=== PATIENT | female | born 1955 | race Caucasian/White ===

== ENCOUNTER 2019-08-27 12:46 | Emergency (ER) | payer BC, OTHER ==
[~2019-08-27] VITALS: Ht 170.2 cm; Wt 70.3 kg
--- NOTE | 2019-08-27 12:50 | NUR ---
CAME IN FOR EPIGASTRIC AREA PAIN AND CHEST TIGHTNESS RADIATING TO BACK. 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
--- NOTE | 2019-08-27 12:52 | NUR ---
ASSEMBLY LINE INSPECTOR DEGRASSE AT BEDSIDE
[2019-08-27] MEDS ORDERED: ONDANSETRON HCL/PF 4 MG/2 ML VIAL IVP ONE (13:00)
[2019-08-27] MEDS ORDERED: MORPHINE SULFATE INJ 2 MG/ML DISP.SYRIN IV ONE ×2 (13:00→14:00)
[2019-08-27] MEDS ORDERED: IV NS 0.9% 1,000 ML BAG IV ONE (13:00)
--- NOTE | 2019-08-27 13:02 | NUR ---
NETWORK OPERATIONS LEAD AT BEDSIDE, CANNOT OBTAIN GOOD READING, WILL COME BACK TO TRY AGAIN. MD EVANS
[2019-08-27] MEDS ORDERED: MORPHINE SULFATE INJ 4 MG/ML DISP.SYRIN ONE (13:09)
[2019-08-27] MEDS ORDERED: ONDANSETRON HCL/PF 4 MG/2 ML VIAL ONE (13:09)
[2019-08-27 13:15] LABS: BASOPHILS % (AUTO) 0.8 % (0.0-2.0); HEMATOCRIT 41 % (33-45); HEMOGLOBIN 13.9 g/dL (11.5-14.8); LYMPHOCYTES % (AUTO) 39.4 % (20.0-44.0); MEAN CORPUSCULAR HGB CONC 34 g/dl (31.0-36.0); MEAN CORPUSCULAR VOLUME 98 fL (82-100); MONOCYTES # (AUTO) 0.3 /CMM (0.1-1.30); NEUTROPHILS # (AUTO) 2.7 /CMM (1.8-8.9); NEUTROPHILS % (AUTO) 52.8 % (43.0-81.0); PLATELET COUNT (AUTO) 226 /CMM (150-450); RED BLOOD CELL COUNT(AUTO) 4.16 MIL/uL (4.0-5.2); WHITE BLOOD COUNT (AUTO) 5.1 K/uL (4.3-11.0)
--- NOTE | 2019-08-27 13:19 | NUR ---
LAUNCH STEWARD AT BEDSIDE
[2019-08-27 13:36] LABS: CALCIUM, SERUM 9.8 mg/dL (8.5-10.1); CARBON DIOXIDE 23 mmol/L (21-32); CHLORIDE 103 mmol/L (98-107); CREATININE 0.6 mg/dL (0.6-1.3); GLUCOSE 126 mg/dL (74-106); POTASSIUM 3.7 mmol/L (3.5-5.1); SODIUM SERUM 140 mmol/L (136-145); UREA NITROGEN, BLOOD 13 mg/dL (7-18)
[2019-08-27] MEDS ORDERED: LIDOCAINE VISCOUS 2% UD 15 ML UDC ONE (13:36)
[2019-08-27] MEDS ORDERED: MAG HYDROX/AL HYDROX/SIMETH 30 ML UDC ONE (13:36)
[2019-08-27 13:38] LABS: ALANINE AMINOTRANSFERASE 52 U/L (12-78); ALBUMIN 3.9 g/dL (3.4-5.0); ALKALINE PHOSPHATASE 94 U/L (46-116); ASPARTATE AMINOTRANSFERASE 91 U/L (15-37); BILIRUBIN,DIRECT 0.2 mg/dL (0.0-0.2); BILIRUBIN,TOTAL 0.5 mg/dL (0.2-1.0)
[2019-08-27] MEDS ORDERED: LIDOCAINE VISCOUS 2% UD 15 ML UDC MM ONE (14:00)
[2019-08-27] MEDS ORDERED: MAG HYDROX/AL HYDROX/SIMETH 30 ML UDC PO ONE (14:00)
[2019-08-27] MEDS ORDERED: [UNRECOGNIZED DRUG - CODE] PO (14:08)
[2019-08-27] MEDS ORDERED: HYDR12.55 PO (14:08)
--- NOTE | 2019-08-27 14:46 | NUR ---
US TECH AT BEDSIDE
[2019-08-27 15:15] VITALS: BP 133/64
--- NOTE | 2019-08-27 15:15 | NUR ---
IV removed. Catheter intact and site benign. Pressure and 4x4 applied to site. No bleeding noted.Patient discharged to home with in stable condition. Written and verbal after care instructions given. Patient verbalizes understanding of instruction.
== END 2019-08-27 15:16 | disposition home or self-care (01) ==
LOC: ER 12:49
DX: K29.70 Gastritis, unspecified, without bleeding (principal); I10 Essential (primary) hypertension; Z90.49 Acquired absence of other specified parts of digestive tract; Z79.899 Other long term (current) drug therapy
CPT/HCPCS: 36415; 71045; 76705; 80048; 80076; 84484; 85025; 85730; 93005 ×2; 96361; 96374; 96375; 99285; J2270; J2405; J7030

== ENCOUNTER 2019-12-02 21:19 | Emergency (ER) | payer BC ==
[~2019-12-02] VITALS: Ht 170.2 cm; Wt 70.3 kg
[~2019-12-02 21:19] MED LIST: HYDR12.55 PO; [UNRECOGNIZED DRUG - CODE] PO
[2019-12-02 21:29] VITALS: BP 164/81
--- NOTE | 2019-12-02 21:38 | NUR ---
bib self, mid epigastric pain 3x hours, aaox4. vomiting and nausea. no sob. breathing evenly and unlabored on room air. connected to monitor
[2019-12-02] MEDS ORDERED: LIDOCAINE VISCOUS 2% UD 15 ML UDC ONE (21:50)
[2019-12-02] MEDS ORDERED: LIDOCAINE VISCOUS 2% UD 15 ML UDC MM ONE (22:00)
== END 2019-12-02 22:10 | disposition home or self-care (01) ==
LOC: ER 21:19
DX: K29.70 Gastritis, unspecified, without bleeding (principal); I10 Essential (primary) hypertension; Z79.899 Other long term (current) drug therapy

== ENCOUNTER 2021-05-30 10:31 | Emergency (ER) | payer MEDICARE, BC ==
[~2021-05-30] VITALS: Ht 170.2 cm; Wt 72.6 kg
[2021-05-30 10:45] VITALS: BP 148/99
--- NOTE | 2021-05-30 10:45 | NUR ---
To ER bed 12, c/o L ankle/foot pain s/p trip on a curb yesterday afternoon, aaox3, breathing even and non labored, awaiting md cordova
[2021-05-30] MEDS ORDERED: ACETAMINOPHEN 325 MG TABLET ONE (11:55)
[2021-05-30] MEDS ORDERED: ACETAMINOPHEN 325 MG TABLET PO ONE (12:00)
--- NOTE | 2021-05-30 12:28 | NUR ---
ASSISTED PT TO THE RESTROOMO USING A WHEELCHAIR
[2021-05-30] MEDS ORDERED: HYDR-4303 PO (13:24)
--- NOTE | 2021-05-30 14:05 | NUR ---
Patient discharged to home in stable condition. Written and verbal after care instructions given. Patient verbalizes understanding of instruction.
== END 2021-05-30 14:06 | disposition home or self-care (01) ==
LOC: ER 11:00
DX: S92.215A Nondisplaced fracture of cuboid bone of left foot, initial encounter for closed fracture (principal); I10 Essential (primary) hypertension; F17.200 Nicotine dependence, unspecified, uncomplicated; Z88.0 Allergy status to penicillin; Z88.8 Allergy status to other drugs, medicaments and biological substances; Z79.899 Other long term (current) drug therapy; W18.09XA Striking against other object with subsequent fall, initial encounter; Y93.89 Activity, other specified; Y92.89 Other specified places as the place of occurrence of the external cause; Y99.8 Other external cause status
CPT/HCPCS: 73610-TC; 73630-TC

== ENCOUNTER 2023-02-05 14:59 | Inpatient (IN) | payer MEDICARE, BC ==
[~2023-02-05] VITALS: Ht 170.2 cm; Wt 71.7 kg
[~2023-02-05 14:59] MED LIST changes: +HYDR-4303 PO
[2023-02-05 15:44] LABS: BASOPHILS # (AUTO) 0.1 K/uL (0.0-0.2); BASOPHILS % (AUTO) 1.2 % (0.0-2.0); EOSINOPHILS # (AUTO) 0.1 K/uL (0.0-0.7); EOSINOPHILS % (AUTO) 2.3 % (0.0-6.0); HEMATOCRIT 42 % (33-45); LYMPHOCYTES # (AUTO) 1.9 K/uL (0.8-4.8); LYMPHOCYTES % (AUTO) 35.6 % (20.0-44.0); MEAN CORPUSCULAR HEMOGLOBIN 32 PG (26.0-33.0); MEAN CORPUSCULAR HGB CONC 33 g/dl (31.0-36.0); MEAN CORPUSCULAR VOLUME 97 fL (82-100); MONOCYTES # (AUTO) 0.3 K/uL (0.1-1.30); MONOCYTES % (AUTO) 6.3 % (2.0-12.0); NEUTROPHILS % (AUTO) 54.6 % (43.0-81.0); PLATELET COUNT (AUTO) 227 K/uL (150-450); RED BLOOD CELL COUNT(AUTO) 4.35 MIL/uL (4.0-5.2); RED CELL DISTRIBUTION WIDTH 13.6 % (11.5-15.0); WHITE BLOOD COUNT (AUTO) 5.4 K/uL (4.3-11.0)
[2023-02-05 15:51] LABS: CALCIUM, SERUM 9.9 mg/dL (8.5-10.1); CARBON DIOXIDE 26 mmol/L (21-32); CHLORIDE 104 mmol/L (98-107); CREATININE 0.7 mg/dL (0.6-1.3); GLUCOSE 165 mg/dL (74-106); POTASSIUM 3.5 mmol/L (3.5-5.1); SODIUM SERUM 139 mmol/L (136-145); UREA NITROGEN, BLOOD 19 mg/dL (7-18)
[2023-02-05 15:54] LABS: INR 0.94 (0.91-1.10); PARTIAL THROMBOPLASTIN TIME 27.3 SEC (24.3-34.3); PROTHROMBIN TIME 9.9 SECS (9.2-11.1)
[2023-02-05 15:55] LABS: ALANINE AMINOTRANSFERASE 30 U/L (12-78); ALBUMIN 3.9 g/dL (3.4-5.0); ALKALINE PHOSPHATASE 119 U/L (46-116); ASPARTATE AMINOTRANSFERASE 16 U/L (15-37); BILIRUBIN,DIRECT 0.1 mg/dL (0.0-0.2); BILIRUBIN,TOTAL 0.3 mg/dL (0.2-1.0); TOTAL PROTEIN, SERUM 7.3 g/dL (6.4-8.2)
[2023-02-05] MEDS ORDERED: CYAN-51 PO (16:12)
[2023-02-05] MEDS ORDERED: PRAS25CA PO (16:12)
[2023-02-05] MEDS ORDERED: MONT10TA22 PO (16:12)
[2023-02-05] MEDS ORDERED: ASPI-1169 PO (16:12)
[2023-02-05] MEDS ORDERED: HYDR12.55 PO (16:12)
[2023-02-05] MEDS ORDERED: THYR90TA PO (16:12)
[2023-02-05] MEDS ORDERED: VITA1TAB56 PO (16:12)
[2023-02-05] MEDS ORDERED: CHOL100043 PO (16:12)
[2023-02-05] MEDS ORDERED: MEDR2.5T7 PO (16:12)
[2023-02-05] MEDS ORDERED: LOSA100T31 PO (16:12)
[2023-02-05] MEDS ORDERED: AMLO5TAB4 PO (16:12)
[2023-02-05] MEDS ORDERED: PREGNENOLONE PO (16:12)
[2023-02-05] MEDS ORDERED: DILTIAZEM HCL 25 MG IV ONE (16:15)
[2023-02-05] MEDS ORDERED: DILTIAZEM HCL 25 MG IV IV ONE (16:30)
[2023-02-05 16:41] LABS: ALCOHOL, BLOOD < 10 mg/dL (0-10)
[2023-02-05 16:53] LABS: THYROID STIMULATING HORMONE 1.168 uIU/mL (0.358-3.74)
[2023-02-05] MEDS ORDERED: IV NS 0.9% 1,000 ML BAG IV ONE (17:00)
[2023-02-05] MEDS ORDERED: ACETAMINOPHEN 325 MG TABLET PO PRN (17:00)
[2023-02-05] MEDS ORDERED: Z GUARD REMEDY 4 OZ OINT TP PRN (17:00)
[2023-02-05] MEDS ORDERED: ONDANSETRON HCL/PF 4 MG/2 ML VIAL IVP PRN (17:00)
[2023-02-05] MEDS ORDERED: AMIODARONE 150 MG/3 ML VIAL IV ONE (17:00)
[2023-02-05] MEDS: APIXABAN 5 MG TABLET PO SCH (17:19)
[2023-02-05] MEDS ORDERED: AMIODARONE 450 MG in IV D5W 241 ML IV PRN (17:30)
[2023-02-05] MEDS ORDERED: AMIODARONE 150 MG in IV D5W 100 ML IV ONE (17:30)
[2023-02-05 20:00] VITALS: BP 118/57; TEMP 97.9; O2SAT 95
[2023-02-06] VITALS: BP 117/60; TEMP 97.2; O2SAT 95
[2023-02-06 04:00] VITALS: BP 145/64; TEMP 98.3; O2SAT 95
[2023-02-06 06:04] LABS: BASOPHILS % (AUTO) 0.4 % (0.0-2.0); EOSINOPHILS # (AUTO) 0.1 K/uL (0.0-0.7); EOSINOPHILS % (AUTO) 2.7 % (0.0-6.0); HEMATOCRIT 40 % (33-45); HEMOGLOBIN 13.1 g/dL (11.5-14.8); LYMPHOCYTES # (AUTO) 1.6 K/uL (0.8-4.8); LYMPHOCYTES % (AUTO) 37.4 % (20.0-44.0); MEAN CORPUSCULAR HEMOGLOBIN 33 PG (26.0-33.0); MEAN CORPUSCULAR HGB CONC 33 g/dl (31.0-36.0); MEAN CORPUSCULAR VOLUME 98 fL (82-100); MONOCYTES # (AUTO) 0.4 K/uL (0.1-1.30); MONOCYTES % (AUTO) 8.6 % (2.0-12.0); NEUTROPHILS # (AUTO) 2.2 K/uL (1.8-8.9); NEUTROPHILS % (AUTO) 50.9 % (43.0-81.0); PLATELET COUNT (AUTO) 199 K/uL (150-450); RED BLOOD CELL COUNT(AUTO) 4.02 MIL/uL (4.0-5.2); RED CELL DISTRIBUTION WIDTH 13.9 % (11.5-15.0); WHITE BLOOD COUNT (AUTO) 4.3 K/uL (4.3-11.0)
[2023-02-06 06:22] LABS: ALBUMIN 3.4 g/dL (3.4-5.0); BILIRUBIN,TOTAL 0.4 mg/dL (0.2-1.0); CALCIUM, SERUM 9.4 mg/dL (8.5-10.1); CREATININE 0.5 mg/dL (0.6-1.3); PHOSPHORUS 3.3 mg/dL (2.5-4.9); POTASSIUM 4.1 mmol/L (3.5-5.1); TOTAL PROTEIN, SERUM 6.4 g/dL (6.4-8.2)
[2023-02-06 06:27] LABS: THYROID STIMULATING HORMONE 1.771 uIU/mL (0.358-3.74)
[2023-02-06 08:00] VITALS: BP 145/64; TEMP 97.8; O2SAT 95
[2023-02-06] MEDS: APIXABAN 5 MG TABLET PO SCH ×2 (08:51→09:00)
[2023-02-06] MEDS ORDERED: APIX5TAB PO (11:32)
== END 2023-02-06 13:56 | disposition home or self-care (01) | DRG 309 ==
LOC: ER 15:08 → TELE1 17:14 → TELE-TD 18:22 → TELE1 02-06 09:10
PROVIDERS: ADMIT Internal Medicine; ATTEND Internal Medicine
DX: I48.0 Paroxysmal atrial fibrillation (principal); D68.59 Other primary thrombophilia; E03.9 Hypothyroidism, unspecified; I10 Essential (primary) hypertension; Z79.82 Long term (current) use of aspirin; Z88.0 Allergy status to penicillin; Z88.8 Allergy status to other drugs, medicaments and biological substances; Z91.048 Other nonmedicinal substance allergy status
CPT/HCPCS: 36415; 70450-TC; 71045-TC; 80048-TC; 80053-TC; 80076-TC; 83735-TC; 84100-TC; 84443-TC; 84484-TC; 85025-TC; 85730-TC; 93307-TC; A4223; G0378; G0480; J0282; J3490; J7030; J7060

== ENCOUNTER 2023-12-27 07:17 | Emergency (ER) | payer MEDICARE, BC ==
[~2023-12-27] VITALS: Ht 12.7 cm; Wt 74.8 kg
[~2023-12-27 07:17] MED LIST changes: +AMLO5TAB4 PO; +APIX5TAB PO; +CHOL100043 PO; +CYAN-51 PO; -HYDR-4303 PO; +LOSA100T31 PO; +MEDR2.5T7 PO; +MONT10TA22 PO; +PRAS25CA PO; +PREGNENOLONE PO; +THYR90TA PO; +VITA1TAB56 PO; -[UNRECOGNIZED DRUG - CODE] PO
[2023-12-27 07:58] LABS: BASOPHILS % (AUTO) 0.3 % (0.0-2.0); EOSINOPHILS # (AUTO) 0.1 K/uL (0.0-0.7); EOSINOPHILS % (AUTO) 1.9 % (0.0-6.0); HEMATOCRIT 40 % (33-45); HEMOGLOBIN 13.9 g/dL (11.5-14.8); LYMPHOCYTES # (AUTO) 1.6 K/uL (0.8-4.8); LYMPHOCYTES % (AUTO) 34.7 % (20.0-44.0); MEAN CORPUSCULAR HEMOGLOBIN 34 PG (26.0-33.0); MEAN CORPUSCULAR HGB CONC 35 g/dl (31.0-36.0); MEAN CORPUSCULAR VOLUME 98 fL (82-100); MONOCYTES # (AUTO) 0.4 K/uL (0.1-1.30); NEUTROPHILS # (AUTO) 2.6 K/uL (1.8-8.9); NEUTROPHILS % (AUTO) 55.1 % (43.0-81.0); PLATELET COUNT (AUTO) 209 K/uL (150-450); RED BLOOD CELL COUNT(AUTO) 4.09 MIL/uL (4.0-5.2); RED CELL DISTRIBUTION WIDTH 13.4 % (11.5-15.0); WHITE BLOOD COUNT (AUTO) 4.6 K/uL (4.3-11.0)
[2023-12-27 08:07] LABS: CALCIUM, SERUM 10.3 mg/dL (8.5-10.1); CARBON DIOXIDE 26 mmol/L (21-32); CHLORIDE 105 mmol/L (98-107); CREATININE 0.6 mg/dL (0.6-1.3); GLUCOSE 119 mg/dL (74-106); POTASSIUM 4.2 mmol/L (3.5-5.1); SODIUM SERUM 140 mmol/L (136-145); UREA NITROGEN, BLOOD 14 mg/dL (7-18)
[2023-12-27 08:29] VITALS: BP 158/76; TEMP 98.3; O2SAT 96
== END 2023-12-27 08:45 | disposition home or self-care (01) ==
LOC: ER 07:24
DX: I49.3 Ventricular premature depolarization (principal); I10 Essential (primary) hypertension; E03.9 Hypothyroidism, unspecified; F17.200 Nicotine dependence, unspecified, uncomplicated; Z88.0 Allergy status to penicillin; Z88.8 Allergy status to other drugs, medicaments and biological substances
CPT/HCPCS: 36415; 71045-TC; 80048-TC; 84443-TC; 84484-TC; 85025-TC